=== PATIENT | female | born 1965 | race Caucasian/White ===

== ENCOUNTER 2016-10-13 08:02 | Emergency (ER) | payer OTHER, BC ==
[~2016-10-13] VITALS: Ht 157.5 cm; Wt 83.9 kg
[2016-10-13] MEDS ORDERED: MULTCAP9 PO (08:15)
[2016-10-13] MEDS ORDERED: BIOT7500 PO (08:15)
[2016-10-13] MEDS ORDERED: HYDR200T3 PO (08:15)
[2016-10-13] MEDS ORDERED: FOLI1TAB2 PO (08:15)
[2016-10-13] MEDS ORDERED: METH2.5TA PO (08:15)
[2016-10-13] MEDS ORDERED: GABA-282 PO (08:15)
[2016-10-13] MEDS ORDERED: ZYRT10CA PO (08:15)
[2016-10-13] MEDS ORDERED: NS 1,000 ML IV ONE ×2 (09:15→11:00)
[2016-10-13] MEDS ORDERED: FAMOTIDINE IV BAG 20 MG in APPROPRIATE DILUENT 1 EA IV ONE (09:15)
[2016-10-13] MEDS ORDERED: METOCLOPRAMIDE INJ 10MG/2ML VIAL (J2765) IV ONE (09:15)
[2016-10-13 09:43] LABS: BASO % 0.6 % (0.0-1.0); EOS % 1.2 % (0.0-3.0); LARGE UNSTAINED CELL # 0.1 K/mm3 (0.0-0.4); LYMPH # 0.9 K/mm3 (1.5-4.5); LYMPH % 20.1 % (24.0-44.0); MEAN CORPUSCULAR HEMOGLOBIN 33.4 pg (27.0-33.0); MEAN CORPUSCULAR HGB CONC 34.9 g/dl (32.0-36.5); MEAN CORPUSCULAR VOLUME 95.7 fl (80.0-96.0); MONO # 0.4 K/mm3 (0.0-0.8); MONO % 8.8 % (0.0-5.0); NEUTROPHILS % 67.3 % (36.0-66.0); PLATELET COUNT, AUTOMATED 237 k/mm3 (150-450); RED CELL DISTRIBUTION WIDTH 12.3 % (11.5-14.5); WHITE BLOOD COUNT 4.5 K/mm3 (4.0-10.0)
[2016-10-13] MEDS: MORPHINE 4 MG/ML 1ML SYRINGE IV PRN ×2 (09:51→11:03)
[2016-10-13 10:11] LABS: ALBUMIN 4.3 GM/DL (3.2-5.2); ALBUMIN/GLOBULIN RATIO 1.26 (1.00-1.93); ALKALINE PHOSPHATASE 81 U/L (45-117); ALT/SGPT 38 U/L (12-78); ANION GAP 9 MEQ/L (8-16); AST/SGOT 29 U/L (15-37); BILIRUBIN,DIRECT 0.3 MG/DL (0.0-0.2); BLOOD UREA NITROGEN 14 MG/DL (7-18); CALCIUM LEVEL 8.7 MG/DL (8.5-10.1); CARBON DIOXIDE LEVEL 24 MEQ/L (21-32); CHLORIDE LEVEL 104 MEQ/L (98-107); CREATININE FOR GFR 0.64 MG/DL (0.55-1.02); GLOMERULAR FILTRATION RATE > 60.0 (>51); GLUCOSE, FASTING 93 MG/DL (70-105); POTASSIUM SERUM 3.5 MEQ/L (3.5-5.1); SODIUM LEVEL 137 MEQ/L (136-145); TOTAL PROTEIN 7.7 GM/DL (6.4-8.2)
--- NOTE | 2016-10-13 10:32 | REP ---
ABDOMINAL SERIES: Supine and erect view of the abdomen demonstrates no free air and no evidence for obstruction. No dilated small bowel loops are seen. There appear to be a few small phleboliths in the pelvis. There are metallic clips in the right upper quadrant. Mild chronic interstitial fibrosis is seen in the lung bases. The heart is normal in size. IMPRESSION: Essentially negative abdominal series. Signed by Gary Philippe MD 10/13/2016 04:07 P
[2016-10-13 11:15] VITALS: BP 113/70
[2016-10-13] MEDS ORDERED: FLAG500T PO (11:51)
[2016-10-13] MEDS ORDERED: ZOFR4TAB3 PO (11:52)
[2016-10-13] MEDS ORDERED: metroNIDAZOLE (FLAGYL) 500 MG TAB PO ONE (12:00)
--- NOTE | 2016-10-13 15:09 | ECGEPIP ---
Stationary ECG Study [facility] - ED Test Date: 2016-10-13 Pat Name: KATH SINGLETON Department: Room: - Gender: F [employer]: PB : 1965 Requested By: Madelyn Hair Order Number: [id number] Reading MD: Madelyn Hair Measurements Intervals [place] Rate: 87 P: -9 AL: 120 QRS: 16 QRSD: 84 T: 13 QT: 351 QTc: 424 Interpretive Statements SINUS RHYTHM NO PRIOR FOR COMPARISON Electronically Signed On 10-13-2016 15:09:38 EDT by Madelyn Hair
== END 2016-10-13 12:44 | disposition home or self-care (01) ==
LOC: M ED 10:48
DX: A04.7 Enterocolitis due to Clostridium difficile (principal); M06.9 Rheumatoid arthritis, unspecified; Z79.899 Other long term (current) drug therapy; Z87.891 Personal history of nicotine dependence
CPT/HCPCS: 74022; 80048; 80076; 81001; 83690; 85025; 87507; 93005; 96374; 96375; 96376; 99284; J2765

== ENCOUNTER → 2019-07-20 | Outpatient (CLI) | payer BC, OTHER ==
[~2019-07-20] MED LIST: BIOT7500 PO; FLAG500T PO; FOLI1TAB11 PO; GABA-843 PO; HYDR200T3 PO; METH2.5T48 PO; MULTCAP9 PO; ZOFR4TAB14 PO; ZYRT10CA PO
--- NOTE | 2019-07-21 08:16 | REPMRS ---
Patient History The patient states she has not had a clinical breast exam in over a year. Patient is postmenopausal. Family history of breast cancer and endometrial cancer in maternal grandmother, breast cancer in paternal grandmother. Benign lumpectomy of the right breast. Digital Woman Screen Mammo: July 20, 2019 - Exam #: [id number] Bilateral CC and MLO view(s) were taken. Technologist: Denia Vernon, Technologist Prior study comparison: February 11, 2011, bilateral digital woman screen mammo, performed at [facility]. FINDINGS: There are scattered fibroglandular densities. There is stable post biopsy contour deformity in the right breast unchanged. There has been no change in the appearance of the mammogram from the prior studies. There is a mild amount of scattered fibroglandular density which is fairly symmetric. There is no interval development of dominant mass, architectural distortion, or grouped microcalcification suggestive of malignancy. 3-D tomosynthesis shows no additional findings. Assessment: BI-RADS/ACR category 2 mammogram. Benign Findings. Recommendation Routine screening mammogram of both breasts in 1 year (for women over age 40). This patient's Lifetime Breast Cancer Risk is estimated at 13.5 %. This mammogram was interpreted with the aid of an FDA-approved computer-aided dectection system. Electronically Signed By: Quintin Briscoe MD 07/21/19 0816
== END ==
LOC: M WHC 16:37
PROVIDERS: ATTEND Family Medicine
DX: Z12.31 Encounter for screening mammogram for malignant neoplasm of breast (principal); Z80.3 Family history of malignant neoplasm of breast; Z80.49 Family history of malignant neoplasm of other genital organs

== ENCOUNTER → 2020-08-02 | Outpatient (CLI) | payer OTHER, BC ==
[~2020-08-02] MED LIST changes: +GABA-282 PO; -GABA-843 PO
== END ==
LOC: M LAB 13:25
PROVIDERS: ATTEND Internal Medicine
DX: M06.9 Rheumatoid arthritis, unspecified (principal)

== ENCOUNTER → 2020-08-16 | Outpatient (CLI) | payer OTHER ==
--- NOTE | 2020-08-16 15:50 | REPMRS ---
Patient History The patient states she has not had a clinical breast exam in over a year. Family history of breast cancer and endometrial cancer in maternal grandmother, breast cancer in paternal grandmother. Benign lumpectomy of the right breast. 3D TOMOSYNTHESIS WAS PERFORMED. The Madhuri Castellon lifetime risk for breast cancer is 13.2%. Volpara breast density b. Digital Woman Screen Mammo: August 16, 2020 - Exam #: [id number] Bilateral CC and MLO view(s) were taken. Technologist: RT Harleen Prior study comparison: July 20, 2019, bilateral digital woman screen mammo performed at [facility]. 2019, bilateral digital mammo screening bilat, performed at [facility]. FINDINGS: There are scattered fibroglandular densities. There has been no change in the appearance of the mammogram from the prior studies. There is a mild amount of residual fibroglandular tissue which is fairly symmetric. There is no interval development of dominant mass, architectural distortion, or clustered microcalcification suggestive of malignancy. Assessment: BI-RADS/ACR category 1 mammogram. Negative Mammogram. Recommendation Routine screening mammogram in 1 year (for women over age 40). This mammogram was interpreted with the aid of an FDA-approved computer-aided dectection system. Electronically Signed By: Gary Philippe MD 08/16/20 8172
== END ==
LOC: M WHC 14:29
PROVIDERS: ATTEND Family Medicine
DX: Z12.31 Encounter for screening mammogram for malignant neoplasm of breast (principal); Z80.3 Family history of malignant neoplasm of breast; Z80.49 Family history of malignant neoplasm of other genital organs; Z86.018 Personal history of other benign neoplasm

== ENCOUNTER → 2021-05-21 | Outpatient (REF) | payer BC, OTHER | LOC: M LAB REF 11:43 | PROVIDERS: ATTEND Physician Assistant | DX: R30.0 Dysuria (principal) ==

== ENCOUNTER 2021-05-23 08:40 | Outpatient (CLI) | payer BC, OTHER ==
[~2021-05-23] VITALS: Ht 157.5 cm; Wt 68.5 kg
[~2021-05-23 08:40] MED LIST changes: +ALBUTEROL 90 MCG/ACT 8GM HFA INHALER INH PRN; +ALBUTEROL SULFATE 2.5 MG/0.5 ML INH NEB SOLN INH PRN; +EPINEPHrine INJ 1 MG/ML 1ML AMP IM PRN; +NS 1,000 ML IV SCH; +diphenhydrAMINE 50MG/ML VIAL (J1200) IV PRN; +methylPREDNISolone 125MG 2ML VIAL IV PRN
[2021-05-23] MEDS ORDERED: CASIRIVIMAB/IMDEVIMAB 1,200 MG in NS 250 ML IV ONE (09:00)
[2021-05-23 09:01] VITALS: BP 119/75
[2021-05-23 09:31] VITALS: BP 109/69
[2021-05-23 10:01] VITALS: BP 112/68
[2021-05-23 11:01] VITALS: BP 130/61
== END 2021-05-23 11:01 | disposition home or self-care (01) ==
LOC: M OPCLI4PR 08:40
PROVIDERS: ATTEND Family Medicine
DX: U07.1 COVID-19 (principal)

== ENCOUNTER 2021-09-18 06:27 | Emergency (ER) | payer BC, OTHER ==
[~2021-09-18] VITALS: Ht 157.5 cm; Wt 72.9 kg
[~2021-09-18 06:27] MED LIST changes: -ALBUTEROL 90 MCG/ACT 8GM HFA INHALER INH PRN; -ALBUTEROL SULFATE 2.5 MG/0.5 ML INH NEB SOLN INH PRN; -EPINEPHrine INJ 1 MG/ML 1ML AMP IM PRN; -NS 1,000 ML IV SCH; -diphenhydrAMINE 50MG/ML VIAL (J1200) IV PRN; -methylPREDNISolone 125MG 2ML VIAL IV PRN
[2021-09-18] MEDS ORDERED: LIDOCAINE 5% (LIDODERM) PATCH TD ONE (07:55)
[2021-09-18] MEDS ORDERED: diazePAM 10 MG TAB PO ONE (07:55)
[2021-09-18] MEDS ORDERED: ACETAMINOPHEN 500 MG TAB PO ONE (07:55)
[2021-09-18] MEDS ORDERED: HUMI40KI2 (09:56)
[2021-09-18] MEDS ORDERED: PRED20TA (09:56)
[2021-09-18] MEDS ORDERED: ALBU8.5H (09:56)
[2021-09-18] MEDS ORDERED: DULO1CAP5 (09:56)
[2021-09-18] MEDS ORDERED: FAMO40TA3 (09:56)
[2021-09-18] MEDS ORDERED: ONDANSETRON 4MG/2ML VIAL IV ONE (10:05)
[2021-09-18] MEDS ORDERED: MORPHINE 4 MG/ML 1ML VIAL/SYRINGE IV ONE (10:05)
[2021-09-18] MEDS ORDERED: NS 1,000 ML IV ONE (10:05)
[2021-09-18 11:17] VITALS: BP 134/72
[2021-09-18] MEDS ORDERED: NITROFURANTOIN (MACROBID) 100 MG CAP PO ONE (11:20)
[2021-09-18] MEDS ORDERED: PERC5TAB12 PO (11:30)
[2021-09-18] MEDS ORDERED: METH-1165 PO (11:30)
[2021-09-18] MEDS ORDERED: ASPE4PAD TOP (11:30)
[2021-09-18] MEDS ORDERED: MACR100C43 PO (11:33)
[2021-09-18] MEDS ORDERED: ROLLMIS8 XX (11:37)
[2021-09-18] MEDS ORDERED: **NOTE PATIENT COMMENT** MISC XX ONE (20:00)
== END 2021-09-18 11:48 | disposition home or self-care (01) ==
LOC: M ED 06:27
DX: M51.17 Intervertebral disc disorders with radiculopathy, lumbosacral region (principal); M41.86 Other forms of scoliosis, lumbar region; M79.651 Pain in right thigh; M06.9 Rheumatoid arthritis, unspecified; R51.9 Headache, unspecified; Z79.899 Other long term (current) drug therapy
CPT/HCPCS: 72125; 72131; 81001; 93971; 99284; J2270; J2405

== ENCOUNTER 2021-12-29 08:19 | Emergency (ER) | payer OTHER ==
[~2021-12-29] VITALS: Ht 157.5 cm; Wt 73.3 kg
[~2021-12-29 08:19] MED LIST changes: +ALBU8.5H; +ASPE4PAD TOP; +DULO1CAP5; +FAMO40TA3; +HUMI40KI2; +MACR100C43 PO; +METH-1165 PO; +PERC5TAB12 PO; +PRED20TA; +ROLLMIS8 XX
[2021-12-29] MEDS ORDERED: NS 1,000 ML IV ONE (09:20)
[2021-12-29] MEDS ORDERED: ACETAMINOPHEN TAB 650MG DOSE (2X325MG) PO ONE (09:20)
[2021-12-29] MEDS ORDERED: PROCHLORPERAZINE 10MG 2ML VIAL IV ONE (09:20)
[2021-12-29 10:43] LABS: BASO % 0.6 % (0.0-1.0); EOS % 0.2 % (0.0-3.0); HEMATOCRIT 38.4 % (36.0-47.0); HEMOGLOBIN 13.4 g/dl (12.0-15.5); LYMPH # 0.9 10^3/uL (1.5-5.0); LYMPH % 16.4 % (24.0-44.0); MEAN CORPUSCULAR HEMOGLOBIN 34.4 pg (27.0-33.0); MEAN CORPUSCULAR HGB CONC 34.9 g/dl (32.0-36.5); MEAN CORPUSCULAR VOLUME 98.5 fl (80.0-96.0); MONO # 0.9 10^3/uL (0.0-0.8); MONO % 17.4 % (2.0-8.0); NEUTROPHILS # 3.5 10^3/uL (1.5-8.5); NEUTROPHILS % 65.2 % (36.0-66.0); PLATELET COUNT, AUTOMATED 179 10^3/uL (150-450); WHITE BLOOD COUNT 5.4 10^3/uL (4.0-10.0)
[2021-12-29 11:14] LABS: BLOOD UREA NITROGEN 18 MG/DL (7-18); CALCIUM LEVEL 9.3 MG/DL (8.5-10.1); CARBON DIOXIDE LEVEL 21 MEQ/L (21-32); CHLORIDE LEVEL 112 MEQ/L (98-107); CREATININE FOR GFR 0.63 MG/DL (0.55-1.30); GLOMERULAR FILTRATION RATE > 60.0 (>51); GLUCOSE, FASTING 86 MG/DL (70-100); POTASSIUM SERUM 4.1 MEQ/L (3.5-5.1); SODIUM LEVEL 141 MEQ/L (136-145)
[2021-12-29] MEDS ORDERED: NIRM1TAB PO ×2 (13:03→14:18)
[2021-12-29 13:23] VITALS: BP 133/70; O2SAT 96
== END 2021-12-29 14:40 | disposition home or self-care (01) ==
LOC: M ED 08:19
DX: U07.1 COVID-19 (principal); J45.909 Unspecified asthma, uncomplicated; M06.9 Rheumatoid arthritis, unspecified; M19.90 Unspecified osteoarthritis, unspecified site; M81.0 Age-related osteoporosis without current pathological fracture; M79.7 Fibromyalgia; Z79.899 Other long term (current) drug therapy
CPT/HCPCS: 71046; 80048; 85025; 87486; 87581; 87633; 87798; 96374; 99284; J0780

== ENCOUNTER 2022-03-25 19:10 | Emergency (ER) | payer OTHER ==
[~2022-03-25] VITALS: Ht 154.9 cm; Wt 74.9 kg
[~2022-03-25 19:10] MED LIST changes: +NIRM1TAB PO
[2022-03-25 19:13] VITALS: BP 130/85
[2022-03-25] MEDS ORDERED: FLUO10CA18 PO (19:33)
[2022-03-25] MEDS ORDERED: ONDA-83 PO (19:33)
[2022-03-25] MEDS ORDERED: HUMI40KI2 SC (19:33)
[2022-03-25] MEDS ORDERED: PANT40TA29 (19:33)
[2022-03-25] MEDS ORDERED: TOPA1TAB PO (19:33)
[2022-03-25] MEDS ORDERED: PRED5TA (19:33)
[2022-03-25] MEDS ORDERED: NOXI1TAB PO (19:33)
[2022-03-25] MEDS ORDERED: METH-1164 PO (19:33)
[2022-03-25] MEDS ORDERED: ZOLM5TAB14 PO (19:33)
[2022-03-25] MEDS ORDERED: RIBO400T PO (19:33)
[2022-03-25] MEDS ORDERED: TOPA100T12 PO (19:33)
== END 2022-03-26 02:54 | disposition left against medical advice (07) ==
LOC: M ED 19:10
DX: Z53.21 Procedure and treatment not carried out due to patient leaving prior to being seen by health care provider (principal)

== ENCOUNTER → 2022-03-26 | Outpatient (CLI) | payer BC, OTHER ==
[~2022-03-26] MED LIST changes: +FLUO10CA18 PO; +HUMI40KI2 SC; +METH-1164 PO; +NOXI1TAB PO; +ONDA-83 PO; +PANT40TA29; +PRED5TA; +RIBO400T PO; +TOPA100T12 PO; +TOPA1TAB PO; +ZOLM5TAB14 PO
== END ==
LOC: M WUC 13:11
PROVIDERS: ATTEND Physician Assistant
DX: R06.02 Shortness of breath (principal)

== ENCOUNTER → 2022-08-12 | Outpatient (REF) | payer BC, OTHER ==
[2022-08-12 13:56] LABS: APPEARANCE, URINE CLOUDY (CLEAR); BACTERIA, URINE AUTO NEGATIVE (NEGATIVE); BILIRUBIN, URINE AUTO NEGATIVE (NEGATIVE); BLOOD, URINE BLOOD NEGATIVE (NEGATIVE); COLOR, URINE AMBER (YELLOW); GLUCOSE, URINE (UA) AUTO NEGATIVE (NEGATIVE); KETONE, URINE AUTO NEGATIVE (NEGATIVE); LEUKOCYTE ESTERASE, URINE AUTO NEGATIVE (NEGATIVE); MUCUS, URINE SMALL (NEGATIVE); NITRITE, URINE AUTO NEGATIVE (NEGATIVE); PROTEIN, URINE AUTO NEGATIVE (NEGATIVE); RBC, URINE AUTO 0 /HPF (0-3); SPECIFIC GRAVITY URINE AUTO 1.008 (1.002-1.035); SQUAMOUS EPITHELIAL CELL UR AU 0 /HPF (0-6); UROBILINOGEN, URINE AUTO 0.2 mg/dL (0.0-2.0); WBC, URINE AUTO 1 /HPF (0-3)
== END ==
LOC: M SMT 13:10
PROVIDERS: ATTEND Physician Assistant
DX: R30.0 Dysuria (principal)
CPT/HCPCS: 51798; 81001; 87086; G0463

== ENCOUNTER → 2022-10-02 | Outpatient (CLI) | payer OTHER | LOC: M WHC 06:59 | PROVIDERS: ATTEND Nurse Practitioner Family | DX: Z12.31 Encounter for screening mammogram for malignant neoplasm of breast (principal) ==

== ENCOUNTER 2022-10-22 15:14 | Outpatient (CLI) | payer OTHER ==
[~2022-10-22] VITALS: Ht 154.9 cm; Wt 77.2 kg
[2022-10-22 15:20] VITALS: BP 124/62
[2022-10-22] MEDS ORDERED: ZOLEDRONIC ACID 5 MG in IV 1 EA IV ONE ×2 (15:30→17:00)
[2022-10-22 16:12] LABS: ALKALINE PHOSPHATASE 83 U/L (46-116); ALT/SGPT 20 U/L (7.0-40); AST/SGOT 19 U/L (<34); BILIRUBIN,TOTAL 0.5 MG/DL (0.3-1.2); BLOOD UREA NITROGEN 12 MG/DL (9-23); CALCIUM LEVEL 8.7 MG/DL (8.5-10.1); CARBON DIOXIDE LEVEL 24 MMOL/L (20-31); CHLORIDE LEVEL 110 MMOL/L (98-107); CREATININE FOR GFR 0.81 MG/DL (0.55-1.30); GLOMERULAR FILTRATION RATE > 60.0 (>51); GLUCOSE, FASTING 95 MG/DL (60-100); POTASSIUM SERUM 3.6 MMOL/L (3.5-5.1); SODIUM LEVEL 140 MMOL/L (136-145); TOTAL PROTEIN 6.4 G/DL (5.7-8.2)
[2022-10-22] MEDS ORDERED: EQL50TAB2 PO (16:39)
[2022-10-22] MEDS ORDERED: CALC-190 PO (16:43)
[2022-10-22] MEDS ORDERED: FLUT1BLS IH (16:43)
[2022-10-22 17:20] VITALS: BP 127/70
== END 2022-10-22 17:20 | disposition home or self-care (01) ==
LOC: M INFU 15:14
PROVIDERS: ATTEND Registered Nurse Diabetes Educator
DX: M85.80 Other specified disorders of bone density and structure, unspecified site (principal)
CPT/HCPCS: 36592; 80053; 96365; J3489

== ENCOUNTER → 2023-10-06 | Outpatient (CLI) | payer OTHER ==
[~2023-10-06] MED LIST changes: +CALC-190 PO; +EQL50TAB2 PO; +FLUT1BLS IH; -HYDR200T3 PO; +HYDR200T46 PO
== END ==
LOC: M WHC 12:01
PROVIDERS: ATTEND Nurse Practitioner Family
DX: Z12.31 Encounter for screening mammogram for malignant neoplasm of breast (principal)

== ENCOUNTER → 2023-10-11 | Outpatient (CLI) | payer OTHER, BC ==
[~2023-10-11] MED LIST changes: +FLUO-290 PO; -FLUO10CA18 PO
[2023-10-11 17:30] LABS: ALKALINE PHOSPHATASE 89 U/L (46-116); ALT/SGPT 24 U/L (7.0-40); AST/SGOT 25 U/L (<34); BILIRUBIN,TOTAL 0.4 MG/DL (0.3-1.2); BLOOD UREA NITROGEN 14 MG/DL (9-23); CALCIUM LEVEL 9.1 MG/DL (8.5-10.1); CARBON DIOXIDE LEVEL 25 MMOL/L (20-31); CHLORIDE LEVEL 108 MMOL/L (98-107); CREATININE FOR GFR 0.98 MG/DL (0.55-1.30); GLOMERULAR FILTRATION RATE > 60.0 (>51); GLUCOSE, FASTING 95 MG/DL (60-100); POTASSIUM SERUM 3.7 MMOL/L (3.5-5.1); PTH INTACT 52.5 PG/ML (18.5-88.0); SODIUM LEVEL 139 MMOL/L (136-145); TOTAL 25(OH) VITAMIN D 37.2 NG/ML (20.0-100.0); TOTAL PROTEIN 6.4 G/DL (5.7-8.2)
== END ==
LOC: M LAB 16:30
PROVIDERS: ATTEND Registered Nurse Diabetes Educator
DX: M85.80 Other specified disorders of bone density and structure, unspecified site (principal); E55.9 Vitamin D deficiency, unspecified; E66.9 Obesity, unspecified

== ENCOUNTER 2023-10-19 12:17 | Outpatient (CLI) | payer OTHER, BC ==
[~2023-10-19] VITALS: Ht 154.9 cm; Wt 76.7 kg
[2023-10-19 12:45] VITALS: BP 111/60; O2SAT 98
[2023-10-19] MEDS: ZOLEDRONIC ACID 5 MG in IV 1 EA IV ONE (12:53)
[2023-10-19 13:30] VITALS: BP 109/59; O2SAT 99
== END 2023-10-19 13:30 | disposition home or self-care (01) ==
LOC: M INFU 12:17
PROVIDERS: ATTEND Registered Nurse Diabetes Educator
DX: M85.80 Other specified disorders of bone density and structure, unspecified site (principal)
CPT/HCPCS: 96365; J3489

== ENCOUNTER → 2024-04-11 | Outpatient (REF) | payer BC, OTHER ==
[~2024-04-11] MED LIST changes: +GABA-1172 PO; -GABA-282 PO
== END ==
LOC: M LAB REF 19:53
PROVIDERS: ATTEND Physician Assistant
DX: J06.9 Acute upper respiratory infection, unspecified (principal)

== ENCOUNTER → 2024-10-09 | Outpatient (CLI) | payer OTHER | LOC: M WHC 15:31 | PROVIDERS: ATTEND Nurse Practitioner Family | DX: Z12.31 Encounter for screening mammogram for malignant neoplasm of breast (principal); R92.313 Mammographic fatty tissue density, bilateral breasts ==

== ENCOUNTER → 2024-10-20 | Outpatient (CLI) | payer OTHER ==
[2024-10-20 16:27] LABS: ALBUMIN 3.9 G/DL (3.2-5.2); ALKALINE PHOSPHATASE 106 U/L (35-104); ALT/SGPT 18 U/L (7.0-40); AST/SGOT 14 U/L (<34); BILIRUBIN,TOTAL 0.4 MG/DL (0.3-1.2); BLOOD UREA NITROGEN 20 MG/DL (9-23); CALCIUM LEVEL 9.2 MG/DL (8.5-10.1); CARBON DIOXIDE LEVEL 27 MMOL/L (20-31); CHLORIDE LEVEL 106 MMOL/L (98-107); GLOMERULAR FILTRATION RATE > 90.0 (>51); GLUCOSE, FASTING 113 MG/DL (60-100); POTASSIUM SERUM 3.9 MMOL/L (3.5-5.1); PTH INTACT 81.3 PG/ML (18.5-88.0); SODIUM LEVEL 141 MMOL/L (136-145); TOTAL PROTEIN 6.5 G/DL (5.7-8.2)
[2024-10-20 16:30] LABS: TOTAL 25(OH) VITAMIN D 45.2 NG/ML (20.0-100.0)
== END ==
LOC: M LAB 15:14
PROVIDERS: ATTEND Internal Medicine Endocrinology, Diabetes & Metabolism
DX: M85.80 Other specified disorders of bone density and structure, unspecified site (principal); E55.9 Vitamin D deficiency, unspecified